=== PATIENT | female | born 1960 | race Caucasian/White ===

== ENCOUNTER 2018-07-05 19:49 | Emergency (ER) | payer OTHER ==
[2018-07-05] MEDS ORDERED: HYDROCODONE/APAP 5/325 MG TAB ONE (20:27)
--- NOTE | 2018-07-05 21:17 | RAD REPORT ---
EXAM DESCRIPTION: RAD - Elbow Right 3 View - 07/05/2018 8:26 pm CLINICAL HISTORY: Nontraumatic, persistent elbow pain COMPARISON: None. FINDINGS: No fracture is identified and no elevated posterior fat pad. There is no dislocation or pe riosteal reaction noted. No foreign body or other soft tissue abnormality. No significant degenerativ e change identifiable. IMPRESSION: Negative right elbow examination for acute or significant finding.
--- NOTE | 2018-07-05 21:29 | ER ---
Nurse's Notes [facility] Name: Kia Cramer Age: 58 yrs Sex: Female : 1960 Arrival Date: 07/05/2018 Time: 19:50 Bed 13 Private MD: Diagnosis: Pain in right elbow Presentation: 07/05 19:56 Presenting complaint: Patient states: right elbow pain with swelling X2 months [employer]. ak1 Transition of care: patient was not received from another setting of care. Onset of symptoms is unknown. Risk Assessment: Do you want to hurt yourself or someone else? Patient reports no desire to harm self or others. Care prior to arrival: None. 19:56 Method Of Arrival: Ambulatory ak1 19:56 Acuity: DANNI 4 ak1 19:58 Note pt denies injury to right elbow. ak1 Triage Assessment: 19:58 General: Appears in no apparent distress. Behavior is calm, cooperative. ak1 Historical: - Allergies: 19:58 PENICILLINS; ak1 - PMHx: 19:58 Diverticulitis; ak1 - PSHx: 19:58 Cholecystectomy; neck fussions; ak1 - Immunization history:: Adult Immunizations unknown. - Social history:: Smoking status: Patient uses tobacco products, smokes one-half pack cigarettes per day. - Ebola Screening: : No symptoms or risks identified at this time. Screenin:26 Abuse screen: Denies threats or abuse. Denies injuries from another. Nutritional aa1 screening: No deficits noted. Tuberculosis screening: No symptoms or risk factors identified. Fall Risk None identified. Assessment: 20:26 General: Appears in no apparent distress. comfortable, Behavior is calm, cooperative, aa1 appropriate for age. Pain: Complains of pain in right elbow Pain currently is 10 out of 10 on a pain scale. Pain began 2 months ago. Neuro: Level of Consciousness is awake, alert, obeys commands, Oriented to person, place, time, situation, Moves all extremities. Respiratory: Airway is patent Respiratory effort is even, unlabored, Respiratory pattern is regular, symmetrical. GI: No signs and/or symptoms were reported involving the gastrointestinal system. : No signs and/or symptoms were reported regarding the genitourinary system. EENT: No signs and/or symptoms were reported regarding the EENT system. Derm: Skin is intact, is healthy with good turgor, Skin is pink, warm \T\ dry. Musculoskeletal: Circulation, motion, and sensation intact. Capillary refill < 3 seconds, Range of motion: limited in right elbow. 21:37 Reassessment: Patient appears in no apparent distress at this time. Patient is alert, aa1 oriented x 3, equal unlabored respirations, skin warm/dry/pink. Discussed d/c \T\ f/u instructions with pt \T\ spouse; denies questions or concerns at this time Patient states feeling better. Vital Signs: 19:58 BP 106 / 67; Pulse 110; Resp 18; Temp 98(O); Pulse Ox 96% on R/A; Weight 65.77 kg (R); ak1 Height 5 ft. 7 in. (170.18 cm) (R); Pain 10/10; 20:26 BP 114 / 65; Pulse 94; Resp 16; Pulse Ox 95% on R/A; aa1 20:57 BP 100 / 68; Pulse 88; Resp 16; Pulse Ox 95% on R/A; mt 21:37 BP 102 / 69; Pulse 85; Resp 16; Pulse Ox 95% on R/A; Pain 6/10; aa1 19:58 Body Mass Index 22.71 (65.77 kg, 170.18 cm) ak1 ED Course: 19:50 Patient arrived in ED. ds1 19:57 Triage completed. ak1 19:58 Arm band placed on Patient placed in an exam room, on a stretcher, Patient notified of ak1 wait time. 20:02 Joseph Ortiz NP is PHCP. pm1 20:02 Will Orona MD is Attending Physician. pm1 20:19 Dede Raymundo, KEV is Primary Nurse. aa1 20:26 Patient has correct armband on for positive identification. Bed in low position. Call aa1 light in reach. Pulse ox on. NIBP on. Warm blanket given. 20:26 Elbow Right 3 View XRAY Sent. aa1 20:27 Elbow Right 3 View XRAY In Process Unspecified. EDMS 20:42 X-ray completed. Portable x-ray completed in exam room. Patient tolerated procedure la2 well. 21:37 No provider procedures requiring assistance completed. Patient did not have IV access aa1 during this emergency room visit. Administered Medications: 20:25 Drug: Roscoe 5 mg-325 mg 1 tabs Route: PO; aa1 21:37 Follow up: Response: No adverse reaction; Pain is decreased aa1 Outcome: 21:28 Discharge ordered by MD. pm1 21:37 Discharged to home ambulatory, with significant other. aa1 21:37 Condition: good 21:37 Discharge instructions given to patient, significant other, Instructed on discharge instructions, follow up and referral plans. medication usage, Demonstrated understanding of instructions, follow-up care, medications, Prescriptions given X 1. 21:39 Patient left the ED. aa1 Signatures: Dispatcher [employer] EDMS Dede Raymundo RN RN aa1 Irma Dowling1 Mercedes Rothman RN RN ak1 Joseph Ortiz, [employer] pm1 Lyla Costello mt, Leslie la2
--- NOTE | 2018-07-05 21:29 | EDPHYS ---
Physician Documentation [facility] Name: Kia Cramer Age: 58 yrs Sex: Female : 1960 Arrival Date: 07/05/2018 Time: 19:50 Bed 13 Private MD: ED Physician Will Orona HPI: 07/05 20:30 This 58 yrs old Female presents to ER via Ambulatory with complaints of Elbow pm1 Injury. 20:30 The patient or guardian complains of pain. The complaints affect the right elbow. pm1 Context: The problem was sustained at home, resulted from unknown cause. Onset: The symptoms/episode began/occurred 2 month(s) ago. Treatment prior to arrival includes: no previous treatment. Modifying factors: The symptoms are alleviated by nothing. the symptoms are aggravated by movement, bending arm. Associated signs and symptoms: Pertinent negatives: decreased range of motion, deformity, fever. Severity of symptoms: in the emergency department the symptoms are actually worse. The patient has not recently seen a physician. mild swelling present at lateral elbow. Historical: - Allergies: 19:58 PENICILLINS; ak1 - PMHx: 19:58 Diverticulitis; ak1 - PSHx: 19:58 Cholecystectomy; neck fussions; ak1 - Immunization history:: Adult Immunizations unknown. - Social history:: Smoking status: Patient uses tobacco products, smokes one-half pack cigarettes per day. - Ebola Screening: : No symptoms or risks identified at this time. ROS: 20:30 Constitutional: Negative for fever, chills, and weight loss, Eyes: Negative for injury, pm1 pain, redness, and discharge, ENT: Negative for injury, pain, and discharge, Neck: Negative for injury, pain, and swelling, Cardiovascular: Negative for chest pain, palpitations, and edema, Respiratory: Negative for shortness of breath, cough, wheezing, and pleuritic chest pain, Abdomen/GI: Negative for abdominal pain, nausea, vomiting, diarrhea, and constipation, Back: Negative for injury and pain. 20:30 Skin: Negative for injury, rash, and discoloration, Neuro: Negative for headache, weakness, numbness, tingling, and seizure. 20:30 MS/extremity: Positive for pain, of the right elbow. Exam: 20:30 Constitutional: This is a well developed, well nourished patient who is awake, alert, pm1 and in no acute distress. Head/Face: Normocephalic, atraumatic. Eyes: Pupils equal round and reactive to light, extra-ocular motions intact. Lids and lashes normal. Conjunctiva and sclera are non-icteric and not injected. Cornea within normal limits. Periorbital areas with no swelling, redness, or edema. ENT: Nares patent. No nasal discharge, no septal abnormalities noted. Tympanic membranes are normal and external auditory canals are clear. Oropharynx with no redness, swelling, or masses, exudates, or evidence of obstruction, uvula midline. Mucous membranes moist. Neck: Trachea midline, no thyromegaly or masses palpated, and no cervical lymphadenopathy. Supple, full range of motion without nuchal rigidity, or vertebral point tenderness. No Meningismus. Chest/axilla: Normal chest wall appearance and motion. Nontender with no deformity. No lesions are appreciated. Cardiovascular: Regular rate and rhythm with a normal S1 and S2. No gallops, murmurs, or rubs. No pulse deficits. Respiratory: Lungs have equal breath sounds bilaterally, clear to auscultation and percussion. No rales, rhonchi or wheezes noted. No increased work of breathing, no retractions or nasal flaring. Abdomen/GI: Soft, non-tender, with normal bowel sounds. No distension or tympany. No guarding or rebound. No evidence of tenderness throughout. Back: No spinal tenderness. No costovertebral tenderness. Full range of motion. Skin: Warm, dry with normal turgor. Normal color with no rashes, no lesions, and no evidence of cellulitis. 20:30 Musculoskeletal/extremity: Extremities: grossly normal except: noted in the right elbow: pain, tenderness, ROM: intact in all extremities, Circulation is intact in all extremities. Vital Signs: 19:58 BP 106 / 67; Pulse 110; Resp 18; Temp 98(O); Pulse Ox 96% on R/A; Weight 65.77 kg (R); ak1 Height 5 ft. 7 in. (170.18 cm) (R); Pain 10/10; 20:26 BP 114 / 65; Pulse 94; Resp 16; Pulse Ox 95% on R/A; aa1 20:57 BP 100 / 68; Pulse 88; Resp 16; Pulse Ox 95% on R/A; mt 21:37 BP 102 / 69; Pulse 85; Resp 16; Pulse Ox 95% on R/A; Pain 6/10; aa1 19:58 Body Mass Index 22.71 (65.77 kg, 170.18 cm) ak1 MDM: 20:02 Patient medically screened. pm1 21:20 Data reviewed: vital signs. Data interpreted: Pulse oximetry: on room air is 95 %. pm1 Interpretation: normal. Counseling: I had a detailed discussion with the patient and/or guardian regarding: the historical points, exam findings, and any diagnostic results supporting the discharge/admit diagnosis, radiology results, the need for outpatient follow up, to return to the emergency department if symptoms worsen or persist or if there are any questions or concerns that arise at home. 07/05 20:06 Order name: Elbow Right 3 View XRAY; Complete Time: 21:19 pm1 Administered Medications: 20:25 Drug: Sewell 5 mg-325 mg 1 tabs Route: PO; aa1 21:37 Follow up: Response: No adverse reaction; Pain is decreased aa1 Disposition: 07/06 03:08 Co-signature as Attending Physician, Will Orona MD. Disposition: 07/05/18 21:28 Discharged to Home. Impression: Pain in right elbow. - Condition is Stable. - Discharge Instructions: Joint Pain, Arthritis. - Prescriptions for Diclofenac Sodium 75 mg Oral Tablet Sustained Release - take 1 tablet by ORAL route 2 times per day; 30 tablet. - Medication Reconciliation Form, Thank You Letter form. - Follow up: Emergency Department; When: As needed; Reason: Worsening of condition. Follow up: Private Physician; When: 2 - 3 days; Reason: Recheck today's complaints, Continuance of care, Re-evaluation by your physician. - Problem is new. - Symptoms have improved. Signatures: Dispatcher [employer] EDMS Dede Raymundo RN RN aa1 Mercedes Rothman RN RN ak1 Joseph Ortiz, DEAL ARCHITECT DEAL ARCHITECT pm1 Will Orona MD MD Corrections: (The following items were deleted from the chart) 07/05 21:39 21:28 07/05/2018 21:28 Discharged to Home. Impression: Pain in right elbow. Condition aa1 is Stable. Forms are Medication Reconciliation Form, Thank You Letter, Antibiotic Education, Prescription Opioid Use. Follow up: Emergency Department; When: As needed; Reason: Worsening of condition. Follow up: Private Physician; When: 2 - 3 days; Reason: Recheck today's complaints, Continuance of care, Re-evaluation by your physician. Problem is new. Symptoms have improved. pm1
== END 2018-07-05 21:39 | disposition home or self-care (01) ==
LOC: ER 19:49
DX: M25.521 Pain in right elbow (principal); F17.210 Nicotine dependence, cigarettes, uncomplicated; Z88.0 Allergy status to penicillin
CPT/HCPCS: 99284